=== PATIENT | female | born 1960 | race Caucasian/White ===

== ENCOUNTER 2018-08-29 23:44 | Observation (INO) ==
[2018-08-30] MEDS: Nitroglycerin 0.4 MG TAB.SUBL SL SCH ×2 (00:05→03:01)
--- NOTE | 2018-08-30 00:06 | Emergency Department Note ---
Disposition Clinical Impression: Chest pain at rest, Hypertension Disposition: Admitted As Inpatient Condition: Fair Chest Pain HPI - General Chief Complaint: ED General Medical Stated Complaint: HBP/"chest feels funny" Time Seen by Provider: 08/29/18 23:49 Source: patient, EMS Limitations: no limitations Vital Signs Reviewed: Yes Nursing Notes Reviewed: Yes - History of Present Illness HPI Narrative: 4-year-old female presenting with chest pressure and elevated blood pressure starting this morning. She states she woke up this morning and was feeling terrible and throughout the day she continued to check her blood pressure was el evated. She describes the pain in her chest as pressure, worsening throughout the day and predominant on the left side. It does not radiate. She has been taking her blood pressure medication and an attempt to help with her pain but she denies this helps at all. Otherwise denies any headache, fever, chills, nausea, vomiting, diarrhea, dysuria, hematuria, abdominal pain, lightheadedness, dizziness, numbness, tingling or weakness. Severity scale (1-10): 0 - Related Data Allergies Allergy/AdvReac Type Severity Reaction Status Date / Time No Known Allergies Allergy Verified 08/29/18 23:59 Constitutional: Denies: fever, chills, weakness, weight change Cardiovascular: Reports: chest pain. Denies: palpitations, dyspnea on exertion, orthopnea, edema, syncope Respiratory: Denies: cough, dyspnea, wheezes, hemoptysis, stridor Gastrointestinal: Denies: abdominal pain, nausea, vomiting, diarrhea, constipation, hematemesis, melena Genitourinary: Denies: urgency, dysuria, frequency Musculoskeletal: Denies: back pain, neck pain, joint swelling Integumentary: Denies: rash, abrasion, lesions Neurological: Denies: headache, weakness, numbness, paresthesias, confusion Psychiatric: Denies: anxiety, depression Endocrine: Denies: fatigue Chest Pain PMH - Past Medical History Medical history: Reports: GERD, hypertension Psychiatric history: Reports: no psych history IN HOME NANNY history: Reports: bilateral tubal ligation - Social History Smoking Status: Current every day smoker Drug use: Reports: none Physical Exam 4-year-old female in no acute distress. She is not in respiratory stress. - General Limitations: no limitations General appearance: alert - Head Head exam: atraumatic, normocephalic - Eye Eye exam: Present: normal appearance, PERRL - ENT ENT exam: normal exam, normal oropharynx, mucous membranes moist - Neck Neck exam: Present: normal inspection, full ROM, trachea midline. Absent: tenderness, meningismus - Chest Chest inspection: Present: normal inspection, symmetric chest wall rise. Absent: tenderness, rash - Respiratory Respiratory exam: Present: normal lung sounds bilaterally. Absent: respiratory distress, wheezes, stridor - Cardiovascular Cardiovascular exam: Present: regular rate, normal rhythm, normal heart sounds - Abdominal Exam Abdominal exam: Present: soft, Non-Tender, normal bowel sounds. Absent: distention, guarding, rebound, rigidity - Extremities Exam Extremities exam: Present: normal inspection. Absent: pedal edema - Back Exam Back exam: Present: normal inspection - Neurological Exam Neurological exam: Present: alert, oriented X3 - Psychiatric Psychiatric exam: Present: normal affect, normal mood - Skin Skin exam: Present: warm, dry, intact Course Vital Signs Temperature 98.2 F 08/29/18 23:49 Pulse Rate 98 08/29/18 23:49 Respiratory Rate 12 08/29/18 23:49 Blood Pressure 157/109 08/29/18 23:49 O2 Sat by Pulse Oximetry 97 08/29/18 23:49 Temperature 98.2 F 08/29/18 23:49 Pulse Rate 86 08/30/18 03:00 Respiratory Rate 18 08/30/18 03:00 Blood Pressure 138/99 08/30/18 03:00 O2 Sat by Pulse Oximetry 97 08/30/18 00:06 Oxygen Delivery Oxygen Delivery Room Air Chest Pain - [facility] Narrative Medical decision making narrative: 58-year-old female presenting with symptoms concerning for ACS. Initial EKG shows nonspecific T-wave abnormalities including T-wave inversion in 3 with T- wave flattening in aVF, V4 and T-wave inversions in V3. The patient did experience some improvement in her pain after nitroglycerin at home and resolution here. Patient has a heart score of 5 and has never had significant cardiac workup. Will require admission to hospitalist for cardiac evaluation. Discussed the case with on-call hospitalist who agrees with plan for admission. Patient agrees with and understands course of treatment plan including plan for admission. All questions answered. - Medical Records Medical records reviewed: Yes I reviewed the patient's medical records. - Lab Data Lab results reviewed: Yes I reviewed the patient's lab results. Result diagrams: 08/30/18 00:10 08/30/18 00:10 Lab Results 08/30/18 08/30/18 08/30/18 Range/Units 00:10 00:10 00:10 WBC 8.7 (4.3-11.1) K/mcL RBC 5.13 H (3.82-4.97) M/mcL Hgb 15.9 H (11.5-15.4) g/dL Hct 46.8 H (35.3-44.9) % MCV 91.2 (83.0-100.0) fL MCH 31.0 (28.0-33.3) pg MCHC 34.0 (31.6-35.5) g/dL RDW 12.7 (11.5-14.5) % Plt Count 260 (140-400) K/mcL MPV 11.2 (9.4-12.4) fL Immature Gran % 0.6 (0-4) % Seg Neutrophils % 58.9 % Lymphocytes % 32.7 % Monocytes % 5.9 % Eosinophils % 1.4 % Basophils % 0.5 % Neutrophils # 5.1 (1.6-8.9) K/mcL Lymphocytes # 2.8 (0.6-4.6) K/mcL Monocytes # 0.5 (0.0-1.3) K/mcL Eosinophils # 0.1 (0.0-0.6) K/mcL Basophils # 0.0 (0.0-0.2) K/mcL PT 9.9 (9.4-12.1) Seconds INR 0.9 APTT 34.0 (26.0-36.0) Seconds Sodium 139 (136-145) mEq/L Potassium 3.6 (3.5-5.1) mEq/L Chloride 103 (98-107) mEq/L Carbon Dioxide 30 H (23-29) mEq/L BUN 14 (8-23) mg/dL Creatinine 0.66 (0.60-1.20) mg/dL Est GFR ( Amer) > 60 (> 60) Est GFR (Non-Af Amer) > 60 (> 60) BUN/Creatinine Ratio 21 (6-26) Glucose 121 H (70-105) mg/dL Calculated Osmolality 290 (280-300) Calcium 10.1 (8.6-10.3) mg/dL Magnesium 2.1 (1.6-2.6) mg/dL Total Bilirubin 0.5 (0.3-1.0) mg/dL AST 36 (13-39) Units/L ALT 46 (7-52) Units/L Alkaline Phosphatase 68 (34-104) Units/L Troponin I < 0.03 (< 0.04) ng/mL Serum Total Protein 7.8 (6.4-8.9) g/dL Albumin 4.4 (3.5-5.7) g/dL Globulin 3.4 (2.4-3.5) g/dL Albumin/Globulin Ratio 1.3 (1.1-2.2) TSH 0.018 L (0.340-5.600) mcIU/mL - Radiology Data Radiology results reviewed: Yes I reviewed the patient's radiology results. Chest X-Ray 08/30/18 23:55 IMPRESSION: Negative portable study D/ / Katia Alonso Cha, MD / Katia Alonso Cha, MD Interpreting Provider: Katia Alonso Cha, MD - EKG Data EKG attestation: Yes I reviewed and interpreted this EKG. EKG results narrative: timed 0004: Normal sinus rhythm rate of 91. Normal axis. ST inversion in III and V1 with T wave flattening in AVF, V2, and V4. No prior for comparison. timed 0203: Normal sinus rhythm rate of 84. Normal axis. ST inversion in III and V1 with T wave flattening in AVF, V2, and V4. No change from prior today. Heart Score - Score History: Highly Suspicious EKG: Non Specific repolarisation Disturbance Age: 45-65 Risk Factors: 1-2 risk factors Troponin: Less than normal limit HEART Score Total: 5 Attestation Statement - Attestation Attestation: Resident Attestation: I examined this patient and my medical decision making was reviewed with the Resident Physician. I agree with the documented findings, disposition and treatment plan as described except to the extent set forth below. We independently had [id number] contact with the patient. Patient presents emergency department for chest pain. Chest pain located to the left side with associated significant hypertension greater than 200. Patient has medication list with her which does include nitroglycerin. She denies any previous heart catheter or stents or bypass surgery. Patient will undergo further evaluation for ACS. No acute distress, regular rate and rhythm, clear to auscultation bilaterally, no significant peripheral edema. Patient improved with nitroglycerin. Patient with inverted T waves in 3 and V3 with poor R-wave progression. Patient will be admitted for further ACS rule out.
[2018-08-30 00:37] LABS: Basophils % 0.5 %; Eosinophils # 0.1 K/mcL (0.0-0.6); Eosinophils % 1.4 %; Hematocrit 46.8 % (35.3-44.9); Hemoglobin 15.9 g/dL (11.5-15.4); Immature Granulocytes % 0.6 % (0-4); Lymphocytes # 2.8 K/mcL (0.6-4.6); Lymphocytes % 32.7 %; Mean Corpuscular Volume 91.2 fL (83.0-100.0); Mean Platelet Volume 11.2 fL (9.4-12.4); Monocytes # 0.5 K/mcL (0.0-1.3); Monocytes % 5.9 %; Neutrophils # 5.1 K/mcL (1.6-8.9); Platelet Count 260 K/mcL (140-400); Red Blood Count 5.13 M/mcL (3.82-4.97); Red Cell Distribution Width 12.7 % (11.5-14.5); Segmented Neutrophils % 58.9 %
[2018-08-30 00:41] LABS: INR 0.9; Prothrombin Time 9.9 Seconds (9.4-12.1)
[2018-08-30 00:55] LABS: Alanine Aminotransferase 46 Units/L (7-52); Albumin 4.4 g/dL (3.5-5.7); Albumin/Globulin Ratio 1.3 (1.1-2.2); Alkaline Phosphatase 68 Units/L (34-104); Aspartate Amino Transferase 36 Units/L (13-39); BUN/Creatinine Ratio 21 (6-26); Bilirubin,Total 0.5 mg/dL (0.3-1.0); Blood Urea Nitrogen 14 mg/dL (8-23); Calcium 10.1 mg/dL (8.6-10.3); Carbon Dioxide 30 mEq/L (23-29); Chloride 103 mEq/L (98-107); Globulin 3.4 g/dL (2.4-3.5); Glucose 121 mg/dL (70-105); Magnesium 2.1 mg/dL (1.6-2.6); Osmolality,Calculated 290 (280-300); Potassium 3.6 mEq/L (3.5-5.1); Sodium 139 mEq/L (136-145); Total Protein 7.8 g/dL (6.4-8.9); Troponin I < 0.03 ng/mL (< 0.04); eGFR For Non-African Americans > 60 (> 60)
[2018-08-30 01:09] LABS: Thyroid Stimulating Hormone 0.018 mcIU/mL (0.340-5.600)
[2018-08-30] MEDS ORDERED: Aspirin 81 MG TAB.CHEW PO STA (01:45)
[2018-08-30] MEDS ORDERED: Naloxone 0.4 MG/ML INJ IVP PRN (05:39)
--- NOTE | 2018-08-30 05:46 | Internal Med History&Physical ---
Date of Encounter: 08/30/18 Time of Encounter: 05:30 Internal Medicine - H&P: HPI Chief complaint: Chest pain Admitted From: Emergency Dept Plans for Post Hospital Care: Home History of present illness: Ms. Cummings is a 58 year old female Patient presented to the emergency room with chest pain that started about 24 hours ago. She woke up in the morning and felt pain in her chest for which she tried taking her home medications which includes nitroglycerin, losartan, amlodipine and aspirin. She says the pain continued, and the medications did not help so she called an ambulance to come to the hospital to be evaluated. In the emergency room patient's CBC was within normal limits BMP also within normal limits. Patient's troponin was undetectable, and TSH was low at 0.018. Chest x-ray was negative for abnormality. EKG showed normal sinus rhythm with a rate of 91 and nonspecific T-wave abnormalities. Nitroglycerin given in the emergency room did improve her pain. She was admitted for further cardiac baudilio p. Upon my evaluation, patient denies nausea, vomiting, diarrhea, constipation, abdominal pain and chest pain. She says that she recently had an echocardiogram performed at an outside facility but is unclear what the results of this test were. She says she has been waiting to receive a stress test. She has not established with a nurse reviewer at [facility]. She smokes one pack of cigarettes daily. Past Med Surg Social Fam HX - Past Medical History Medical history: GERD, hypertension Psychiatric history: no psych history - Social History Smoking Status: Current every day smoker Packs per day: 1 Smokeless Tobacco Status: No Alcohol use: rarely Drug use: none - Family History Father Name: Jose Alfredo Guzmán Living Status: Age at : 78 Cause of : stopped dialysis Hx Family Cardiac Disorders: Yes (CABG) Hx Family Endocrine Disorder: Yes (dialyisis) Internal Medicine - H&P: Meds Acetaminophen [Tylenol] 325 mg PO PRN PRN 08/30/18 [History] Amlodipine Besylate 10 mg PO DAILY 08/30/18 [History] Aspirin [Lo-Dose Aspirin EC] 81 mg PO DAILY 08/30/18 [History] Doxycycline Hyclate [Morgidox] 50 mg PO DAILY 08/30/18 [History] Levothyroxine Sodium [Synthroid] 137 mcg PO DAILY 08/30/18 [History] Loratadine [Allergy Relief] 10 mg PO DAILY 08/30/18 [History] Losartan/Hydrochlorothiazide [Losartan-Hctz 100-25 mg Tab] 1 each PO DAILY [History] Magnesium Oxide [Magnesium] 400 mg PO DAILY 08/30/18 [History] Nitroglycerin [Nitrostat] 0.4 mg SL PRN PRN 08/30/18 [History] Omeprazole [PriLOSEC] 20 mg PO DAILY 08/30/18 [History] clonazePAM [Clonazepam] 0.5 mg PO DAILY 08/30/18 [History] rOPINIRole [Requip] 1 mg PO HS 08/30/18 [History] Allergy/AdvReac Type Severity Reaction Status Date / Time No Known Allergies Allergy Verified 08/29/18 23:59 All Systems PM: A 10-system review of systems was performed and is negative for pertinent findings except as documented above in the HPI. - Constitutional Vitals: Temp Pulse Resp BP Pulse Ox 97.9 F 77 16 104/73 96 08/30/18 04:58 08/30/18 04:58 08/30/18 04:58 08/30/18 04:58 08/30/18 04:58 General appearance: Present: cooperative, A&O X 3, pleasant, no acute distress, answers questions appropriately Exam: - - Head Head exam: Present: normal inspection - Eye Eye exam: Present: EOMI, normal appearance - Neck Neck exam general surgery: Present: full ROM - Respiratory Respiratory exam: Present: CTAB. Absent: respiratory distress, rhonchi, wheezes - Cardiovascular Cardiovascular exam: Present: RRR. Absent: diastolic murmur, systolic murmur - GI/Abdominal GI/Abdominal exam: Present: normal bowel sounds, soft. Absent: tenderness - Extremities Exam Extremities exam: Present: warm, radial pulses palpable and symmetrical. Absent: calf tenderness, pedal edema, tenderness - Neurological Exam Neurological exam: Present: motor sensory deficit, no focal deficits, strengths equal and symetr throughout. Absent: facial droop, speech deficit - Skin Skin exam: Present: dry, normal color, warm Internal Med - H&P Results - Labs CBC & Chem 7: 08/30/18 00:10 08/30/18 00:10 Labs: Short CBC 08/30/18 Range/Units 00:10 WBC 8.7 (4.3-11.1) K/mcL Hgb 15.9 H (11.5-15.4) g/dL Hct 46.8 H (35.3-44.9) % Plt Count 260 (140-400) K/mcL Neutrophils # 5.1 (1.6-8.9) K/mcL BMP 08/30/18 00:10 Sodium 139 Potassium 3.6 Chloride 103 Carbon Dioxide 30 H BUN 14 Creatinine 0.66 Glucose 121 H Calcium 10.1 Cardiac Enzymes 08/30/18 Range/Units 00:10 Troponin I < 0.03 (< 0.04) ng/mL Liver Function 08/30/18 Range/Units 00:10 Total Bilirubin 0.5 (0.3-1.0) mg/dL AST 36 (13-39) Units/L ALT 46 (7-52) Units/L Alkaline Phosphatase 68 (34-104) Units/L Albumin 4.4 (3.5-5.7) g/dL - Impressions ITS Impressions Chest X-Ray 08/30/18 23:55 IMPRESSION: Negative portable study D/ / Katia Alonso Cha, MD / Katia Alonso Cha, MD Interpreting Provider: Katia Alonso Cha, MD - Assessment and plan (1) Chest pain at rest Current Visit: Yes Status: Acute Assessment and plan: Chest pain now resolved. Initial troponins negative, EKG demonstrated nonspecific changes. Patient had been receiving workup outpatient but results not available at this time. Attempt to retrieve results of patient's prior echocardiogram, may have to repeat test if not obtainable. Consider stress test, as patient had arrangements for pharmacologic stress test to be done by another provider. Continue to trend troponins Continue cardiac monitoring (2) Hypertension Current Visit: Yes Status: Acute Assessment and plan: Chronic, continue home meds Qualifiers: Hypertension type: essential hypertension Qualified Code(s): I10 - Essential (primary) hypertension (3) Hypothyroidism Current Visit: Yes Status: Acute Assessment and plan: Patient's TSH was very low in the emergency room, likely due to too high of a dose of her levothyroxine. Patient may need readjustment of her home medicine. Qualifiers: Qualified Code(s): E03.9 - Hypothyroidism, unspecified (4) DVT prophylaxis Current Visit: Yes Status: Acute Assessment and plan: Subcutaneous heparin - Time Spent With Patient Total time spent is greater than 50% in coordination of care (as documented) at patient's floor/unit and/or counseling patient: Greater than 35 minutes
[2018-08-30] MEDS: *HR* Heparin 5,000 UNIT/ML VIAL SQ SCH ×2 (06:13→17:15)
--- NOTE | 2018-08-30 08:39 | Event Note ---
Date of Encounter: 08/30/18 Time of Encounter: 09:20 Ms mcarthur was admitted with chest pain and for cardiac work up. awake, alert and currently pain free. Has had cp in recent month, admitted elsewhere for same, got dc to home with pcp fu and referral for pharm stress test which has not been yet/not yet scheduled. cp episode this admit started 24hrs ago. She has had intermittent chest pain at home, cannot discern if at rest or with exertion. left chest, occassional radiation to back. not associated with sob, diaphoresis, presyncope, n/v. No pain since nitro in ED. Denies diabetes, hyperlipidemia, notes + htn and bps have been difficult to control at home. no le edema, orthopnea, pnd, wheezing cough or congestion. no abd pain, dyspepsia, gerd hx. Father had open heart and dies in his 70s. Every day smoker. Denies recent travel, immobilization, calf pain/edema or blood clot history gen- alert, awake,appears stated age eyes- pupils equal round cv- reg rate and rhythm, normal s1,s2, no murmurs appreciated, no le edema, no jvd lungs- ctabl, no wheezing, rhonchi or crackles, normal resp effort on ra abd- soft, non tender, non distended, + bs neuro- AAOx3, Chest Pain, atypical ruled out acs with neg trops and reportedly no st depression or elevation on ED ekg- I will note, I have reveiwed the EKG interpretations as noted in ED and admitting hospitalist notes, but ekg is not in chart and not scanned into computer, so I can rely on report of initial ekg this morning -tele to monitor for arrhythmia -CXR without acute abnormality -presentation and ros not consistent with PE -rule out cardiac ischemia -risk stratify: lipid panel elevated, begin statin, check a1c, cont daily asa, check echo, stress test if available to do so today, otherwise will have to wait until saturday -pending work up will consider cards eval HLD 10 yr cvd or stroke risk 8%- begin mod intensity statin and can be uptrated outpt with pcp HTN- cont home med arb/hctz + norvasc and monitor, adjust as needed, currently normotensive Rosacea- cont home doxy daily Hx thyroidectomy, dependent on synthroid- tsh low, check t3, t4, may need to decrease home synthroid dose (no recent adjustments per pt) vte ppx sqh
[2018-08-30 08:55] LABS: Chol/HDL Ratio 4.7 (0-4.9); Cholesterol 203 mg/dL (< 200); HDL Cholesterol 43 mg/dL (40-59); LDL Cholesterol,Calculated 121 mg/dL (0-99); Triglycerides 193 mg/dL (< 150)
[2018-08-30] MEDS: Magnesium Oxide 400 MG TABLET PO SCH (12:23)
[2018-08-30] MEDS: Aspirin Enteric Coated 81 MG Tablet PO SCH (12:23)
[2018-08-30] MEDS: clonazePAM 0.5 MG TABLET PO SCH (12:23)
[2018-08-30] MEDS: Losartan/HCTZ 50-12.5 TABLET PO SCH (12:24)
[2018-08-30] MEDS: amLODIPine 5 MG TABLET PO SCH (12:24)
[2018-08-30] MEDS: DOXYCYCLINE HYCLATE 50 MG PO SCH (12:24)
[2018-08-30 12:51] LABS: Troponin I < 0.03 ng/mL (< 0.04)
[2018-08-30 13:06] LABS: Triiodothyronine (T3) Free 3.29 pg/mL (2.50-3.90)
[2018-08-30 15:09] LABS: Estimated Average Glucose 126 mg/dl
[2018-08-30] MEDS: rOPINIRole 1 MG TABLET PO SCH (20:09)
[2018-08-31] MEDS: *HR* Heparin 5,000 UNIT/ML VIAL SQ SCH ×2 (06:04→16:35)
--- NOTE | 2018-08-31 08:14 | Internal Med Progress Note ---
Hospitalist Progress Note - Encounter Date of Encounter: 08/31/18 Time of Encounter: 11:00 - Subjective Interval History: no cp last evening or overnight, none today. no manning, vision changes, n/v, abd pain. no sob or diaphroesis. - Exam Vitals: Temp Pulse Resp BP Pulse Ox 97.9 F 67 16 111/69 95 08/31/18 07:07 08/31/18 07:07 08/31/18 07:07 08/31/18 07:07 08/31/18 07:07 Exam: gen- alert, awake,appears stated age cv- reg rate and rhythm, normal s1,s2, no murmurs appreciated, no le edema lungs- ctabl, no wheezing, rhonchi or crackles, normal resp effort on ra abd- soft, non tender, non distended, + bs neuro- AAOx3, - Assessment and Plan (1) Chest pain Current Visit: Yes Status: Acute Assessment and Plan: Chest Pain, atypical ruled out acs with neg trops and reportedly no st depression or elevation on ED ekg- I will note, I have reveiwed the EKG interpretations as noted in ED and admitting hospitalist notes, but ekg is not in chart and not scanned into computer, so I can only rely on report of initial ekg on admit -tele to monitor for arrhythmia -CXR without acute abnormality -presentation and ros not consistent with PE -rule out cardiac ischemia -risk stratify: lipid panel elevated, began statin, a1c 6 prediabetes, cont daily asa -echo normal ef, mild DD - stress test could not be preformed saturday, will do saturday, npo p mn -pending work up will consider cards eval (2) HLD (hyperlipidemia) Current Visit: Yes Status: Acute Assessment and Plan: 10 yr cvd or stroke risk 8%- began mod intensity statin and can be uptrated outpt with pcp (3) Rosacea Current Visit: Yes Status: Acute Assessment and Plan: cont home doxy daily (4) Hypertension Current Visit: Yes Status: Acute Assessment and Plan: cont home med arb/hctz + norvasc and monitor, adjust as needed, currently normotensive (5) Hypothyroidism Current Visit: Yes Status: Acute Assessment and Plan: Hx thyroidectomy with low tsh, dependent on synthroid- tsh low, t3, t4 wnl, cont home synthroid dose (6) Prediabetes Current Visit: Yes Status: Acute Assessment and Plan: A1C 6.0 -diet and lifestyle education, fu with pcp DVT Prophylaxis: sq heparin - Time Spent with Patient Total time spent is greater than 50% in coordination of care (as documented) at patient's floor/unit and/or counseling patient: 25 - 35 minutes Plan of Care Discussed with: patient Internal Medicine: Result - Labs CBC & Chem 7: 08/30/18 00:10 08/30/18 00:10 Labs: BMP 08/30/18 00:10 Sodium 139 Potassium 3.6 Chloride 103 Carbon Dioxide 30 H BUN 14 Creatinine 0.66 Glucose 121 H Calcium 10.1 Cardiac Enzymes 08/30/18 08/30/18 Range/Units 00:10 12:06 Troponin I < 0.03 < 0.03 (< 0.04) ng/mL Liver Function 08/30/18 Range/Units 00:10 Total Bilirubin 0.5 (0.3-1.0) mg/dL AST 36 (13-39) Units/L ALT 46 (7-52) Units/L Alkaline Phosphatase 68 (34-104) Units/L Albumin 4.4 (3.5-5.7) g/dL - ABG Interpretation ABG results: PT/INR, D-dimer PT 9.9 Seconds (9.4-12.1) 08/30/18 00:10 - Impressions Impressions Echocardiogram 08/30/18 08:35 Impressions: LVEF 65%. Normal LV chamber size, wall thickness and systolic function. Mild left ventricular diastolic dysfunction. Normal right ventricular structure and function. No significant valvular dysfunction. No evidence of pulmonary hypertension. Left Ventricular Wall Motion: Rest Echo Findings All wall segments showed normal motion. Findings: Study Quality * Technically adequate exam. ECG Findings * Normal sinus rhythm. Left Ventricle * LVEF 65%. * Normal LV chamber size, wall thickness and systolic function. * Mild left ventricular diastolic dysfunction. Right Ventricle * Normal right ventricular structure and function. Left Atrium * Normal left atrial size. Right Atrium * Normal right atrial size. Interatrial Septum * Interatrial septum not well evaluated. Aortic Valve * Trileaflet aortic valve with normal function. * No aortic stenosis. * No aortic regurgitation. Mitral Valve * Normal mitral valve structure. * No mitral stenosis. * Trace mitral regurgitation. Tricuspid Valve * Normal tricuspid valve structure and function. * No tricuspid stenosis. * Trace tricuspid regurgitation. * Unable to estimate RVSP due to lack of TR jet. * No evidence of pulmonary hypertension. * Estimated RA pressure is 3 mmHg. Pulmonic Valve * Pulmonic valve is not well visualized. * No pulmonic stenosis. * No pulmonic regurgitation. Aorta * Normally sized aortic root. Pericardium * The pericardium appears normal. IVC * Normal IVC dimensions and inspiratory collapse. Consult Discharge Plan - Plan Referrals: Barbie Ochoa APN [Primary Care Provider] - (Unable to make follow up appointment due to office being closed. Please call Saturday to schedule a ppointment for 5-7 days from date of discharge. ) ___ (1) Chest pain Qualifiers: Chest pain type: other chest pain Qualified Code(s): R07.89 - Other chest pain; R07.8 - Other chest pain (2) HLD (hyperlipidemia) Qualifiers: Hyperlipidemia type: mixed hyperlipidemia Qualified Code(s): E78.2 - Mixed hyperlipidemia (4) Hypertension Qualifiers: Hypertension type: essential hypertension Qualified Code(s): I10 - Essential (primary) hypertension (5) Hypothyroidism Qualifiers: Qualified Code(s): E03.9 - Hypothyroidism, unspecified
[2018-08-31] MEDS: clonazePAM 0.5 MG TABLET PO SCH (08:55)
[2018-08-31] MEDS: Losartan/HCTZ 50-12.5 TABLET PO SCH (08:55)
[2018-08-31] MEDS: amLODIPine 5 MG TABLET PO SCH (08:55)
[2018-08-31] MEDS: Magnesium Oxide 400 MG TABLET PO SCH (08:55)
[2018-08-31] MEDS: Aspirin Enteric Coated 81 MG Tablet PO SCH (08:55)
[2018-08-31] MEDS: DOXYCYCLINE HYCLATE 50 MG PO SCH (08:56)
[2018-08-31] MEDS: rOPINIRole 1 MG TABLET PO SCH (20:25)
[2018-08-31] MEDS: Nitroglycerin 0.4 MG TAB.SUBL SL SCH (22:44)
[2018-09-01] MEDS: *HR* Heparin 5,000 UNIT/ML VIAL SQ SCH (05:20)
[2018-09-01 05:42] LABS: Basophils # 0.1 K/mcL (0.0-0.2); Basophils % 0.6 %; Eosinophils # 0.1 K/mcL (0.0-0.6); Eosinophils % 1.6 %; Hematocrit 43.4 % (35.3-44.9); Immature Granulocytes % 0.6 % (0-4); Lymphocytes # 3.7 K/mcL (0.6-4.6); Lymphocytes % 42.7 %; Mean Corpuscular HGB Conc 32.9 g/dL (31.6-35.5); Mean Corpuscular Hemoglobin 30.5 pg (28.0-33.3); Mean Corpuscular Volume 92.5 fL (83.0-100.0); Mean Platelet Volume 11.3 fL (9.4-12.4); Monocytes # 0.7 K/mcL (0.0-1.3); Monocytes % 8.2 %; Neutrophils # 4.1 K/mcL (1.6-8.9); Platelet Count 235 K/mcL (140-400); Red Blood Count 4.69 M/mcL (3.82-4.97); Red Cell Distribution Width 12.9 % (11.5-14.5); Segmented Neutrophils % 46.3 %
[2018-09-01 05:43] LABS: Hemoglobin 14.3 g/dL (11.5-15.4)
[2018-09-01] MEDS ORDERED: Regadenoson 0.4 MG/5 ML SYRINGE IVP ONE (06:00)
[2018-09-01 06:03] LABS: BUN/Creatinine Ratio 29 (6-26); Blood Urea Nitrogen 20 mg/dL (8-23); Calcium 9.6 mg/dL (8.6-10.3); Carbon Dioxide 27 mEq/L (23-29); Chloride 105 mEq/L (98-107); Glucose 102 mg/dL (70-105); Magnesium 2.1 mg/dL (1.6-2.6); Osmolality,Calculated 291 (280-300); Potassium 3.8 mEq/L (3.5-5.1); Sodium 139 mEq/L (136-145); eGFR For Non-African Americans > 60 (> 60)
[2018-09-01 11:04] VITALS: BP 100/71
--- NOTE | 2018-09-01 12:31 | Discharge Summary ---
<Lizeth Gr - Last Filed: 09/01/18 12:59> Orders not resulted at time of discharge: Pending orders 08/30/18 11:07 NM claudy perf SPECT multi [NM] Routine Date of Encounter: 09/01/18 - Discharge Diagnosis (1) Chest pain Status: Acute Qualifiers: Chest pain type: other chest pain Qualified Code(s): R07.89 - Other chest pain; R07.8 - Other chest pain (2) HLD (hyperlipidemia) Status: Acute Qualifiers: Hyperlipidemia type: mixed hyperlipidemia Qualified Code(s): E78.2 - Mixed hyperlipidemia (3) Rosacea Status: Acute (4) Hypertension Status: Acute Qualifiers: Hypertension type: essential hypertension Qualified Code(s): I10 - Essential (primary) hypertension (5) Hypothyroidism Status: Acute Qualifiers: Qualified Code(s): E03.9 - Hypothyroidism, unspecified (6) Prediabetes Status: Acute Hospital course: Ms. Cummings is a 58 year old female - Time Spent with Patient Total time spent providing and/or coordinating discharge services: Less than 30 minutes (25 min) - Discharge Medications Prescriptions: Simvastatin [Zocor] 20 mg PO HS 30 Days #30 tablet Home Medications: Acetaminophen [Tylenol] 325 mg PO Q6H PRN 08/30/18 [History] Amlodipine Besylate 10 mg PO DAILY 08/30/18 [History] Aspirin [Lo-Dose Aspirin EC] 81 mg PO DAILY 08/30/18 [History] Cholecalciferol (D-3) [Vitamin D] 1,000 unit PO DAILY 08/30/18 [History] Doxycycline Hyclate [Morgidox] 50 mg PO DAILY 08/30/18 [History] Levothyroxine Sodium [Synthroid] 137 mcg PO DAILY 08/30/18 [History] Loratadine [Allergy Relief] 10 mg PO DAILY 08/30/18 [History] Losartan/Hydrochlorothiazide [Losartan-Hctz 100-25 mg Tab] 1 each PO DAILY 08/30/18 [History] Magnesium Oxide [Magnesium] 400 mg PO DAILY 08/30/18 [History] Nitroglycerin [Nitrostat] 0.4 mg SL Q5M PRN 08/30/18 [History] Omeprazole [PriLOSEC] 20 mg PO DAILY 08/30/18 [History] clonazePAM [Clonazepam] 0.5 mg PO BID 08/30/18 [History] rOPINIRole [Requip] 1 mg PO BID 08/30/18 [History] Simvastatin [Zocor] 20 mg PO HS 30 Days #30 tablet 09/01/18 [Rx] Allergies/Adverse Reactions: Allergy/AdvReac Type Severity Reaction Status Date / Time No Known Allergies Allergy Verified 08/29/18 23:59 Date of admission: 08/30/18 03:26 Primary care physician: Barbie Ochoa APN - Constitutional Vitals: Temp Pulse Resp BP Pulse Ox 97.5 F L 73 16 100/71 96 09/01/18 11:03 09/01/18 11:03 09/01/18 11:03 09/01/18 11:03 09/01/18 11:03 - Patient Status Disposition: Home, Self-Care Condition: Good - Discharge Instructions Instructions: Simvastatin (By mouth), Chest Pain (DC), How to Stop Smoking (DC), Chronic Hypertension (DC), Low Sodium Diet (DC) Follow Up With: Barbie Ochoa APN [Primary Care Provider] - (Unable to make follow up appointment due to office being closed. Please call Saturday to schedule appointment for 5-7 days from date of discharge. ) - Diet and Activity Diet: low fat, low cholesterol, low salt diet, other - Attending Attestation I examined this patient and my medical decision-making was reviewed with the Resident Physician Dr Madera. I agree with the documented findings, disposition and treatment plan as described except to the extent set forth below. Ms cummings was admitted with chest pain and for cardiac work up of chest pain that has been an ongoing issue outpt. Her work up including tele, ekg, trops, echo and stress test are unremarkable. She is being dc to home in stable condition with pcp fu. awake, pleasant, sons at bedside. No cp, prssure, palpitations, presyncope, abd pain, sob, diaphroesis, n/v. encouraged pt her BP is well controlled on home meds here. sons note checks checks bp up to ten times daily and gets anxious and then sees bp elevations. discussed appropraite bp checking at home, nicotine cessation, diet and exercise modifications, and warning signs of htn and cardiac ischemia that would prompt return to ED or call to physician. Verbalized good understanding, all questions answered. gen- alert, awake,appears stated age cv- reg rate and rhythm, normal s1,s2, no murmurs appreciated, no le edema lungs- ctabl, no wheezing, rhonchi or crackles, normal resp effort on ra abd- soft, non tender, non distended, + bs neuro- AAOx3 Chest Pain, atypical ruled out acs with neg trops and ekg with non specific STT changes (which has now been loaded into [facility]) no arrhythmia CXR without acute abnormality presentation and ros not consistent with PE echo with mild Diastolic dysfunction, normal EF stress test negative for ischemia -cont home asa, statin started here given cardiac risk factors, fu with pcp for further work up of pain or outpt cardiology referral HLD 10 yr cvd or stroke risk 8%- began mod intensity statin and can be uptrated outpt with pcp HTN- cont home med arb/hctz + norvasc and monitor,well controlled bp here on home regimen, fu with pcp Rosanormaa- cont home doxy daily Hx thyroidectomy, dependent on synthroid- tsh low, t3, t4 normal, cont home synthroid further diagnoses and plan as noted by resident <Allen Madera R - Last Filed: 09/01/18 15:21> - NOTES TO OUTPATIENT PROVIDER Notes to Outpatient Provider: Follow up PCP for statin which was initiated as inpatient, anxiety, hypertension, and discuss outpatient referal to cardiology. Orders not resulted at time of discharge: Pending orders 08/30/18 11:07 NM claudy perf SPECT multi [NM] Routine Date of Encounter: 09/01/18 Time of Encounter: 10:00 - Discharge Diagnosis (1) Hypertension Priority: Primary Status: Acute Qualifiers: Hypertension type: essential hypertension Qualified Code(s): I10 - Essential (primary) hypertension (2) Hypothyroidism Priority: Secondary Status: Acute Qualifiers: Qualified Code(s): E03.9 - Hypothyroidism, unspecified (3) Chest pain Priority: Primary Status: Acute Qualifiers: Chest pain type: other chest pain Qualified Code(s): R07.89 - Other chest pain; R07.8 - Other chest pain (4) HLD (hyperlipidemia) Priority: Primary Status: Acute Qualifiers: Hyperlipidemia type: mixed hyperlipidemia Qualified Code(s): E78.2 - Mixed hyperlipidemia (5) Rosacea Priority: Secondary Status: Acute (6) Prediabetes Priority: Secondary Status: Acute Hospital course: Ms. Cummings is a 58 year old female with a past medical history significant for hypertension. Presented on 08/29/2018 for evaluation of elevated blood pressure as well as associated chest pressure. Patient reports that she has been checking her blood pressure frequently throughout the day. When she notices that it is elevated, this time approximately systolic of 175, this causes anxiety and she suddenly noted chest pressure. Cardiovascular workup was without significant findings. EKG with nonspecific T-wave abnormalities similar to prior EKGs. Troponins negative. Chest x-ray without acute abnormality. Echocardiogram with left ventricular ejection fraction of 65%, mild left ventricular diastolic dysfunction, no significant valvular dysfunction, normal wall thickness and chamber size. Nuclear stress test was performed on 08/04 without evidence of ischemia or infarction, demonstrating a normal perfusion study. Vital signs have remained stable throughout this hospitalization. Blood pressures ranged within normal limits, on home medication regimen. Cluster was found to be elevated with a total cholesterol of 203 and an LDL cholesterol of 121, patient was started on 20 mg simvastatin. Have discussed with patient risk factor modification including dietary changes, exercise, smoking cessation, and anxiety management. After much discussion with patient it is felt that anxiety is a significant triggering factor to patient's parotic elevated blood pressures. She will likely benefit from anxiety discussion with her primary care provider. Hospital course has been uncomplicated and patient is stable and ready for discharge this afternoon. Will follow up with primary care provider for ongoing management of hyperlipidemia, hypertension, anxiety, and further consideration for referral to cardiology. Naproxen was discontinued at discharge, patient states she has not taken this medication for over a month. Discharge discussed with: patient, family - Time Spent with Patient Total time spent providing and/or coordinating discharge services: Date of admission: 08/30/18 03:26 Primary care physician: Barbie Ochoa APN Discharging clinician: Allen Madera Anticipated date of discharge: 09/01/18 - Constitutional Vitals: Temp Pulse Resp BP Pulse Ox 97.5 F L 73 16 100/71 96 09/01/18 11:03 09/01/18 11:03 09/01/18 11:03 09/01/18 11:03 12/31/18 11:03 General appearance: Present: cooperative, A&O X 3, pleasant, no acute distress, answers questions appropriately Exam: General: Patient lying in bed comfortably, no apparent distress HEENT: Pupils PERRLA with EOMI, moist membranes, anicteric sclera Cardio: Regular rate and rhythm without murmurs, rubs, or gallops Lungs: Clear to auscultation bilaterally, no wheezing, rhonchi, or crackles Abdomen: Soft, nontender, nondistended, bowel sounds present normoactive Extremities: No swelling or edema, no visible rashes or lesions Neuro: Alert and oriented to person, place, time, no focal deficits Psych: Appropriate mood and affect - Patient Status Functional capacity at discharge: independent ambulation Overall status at discharge: patient is back to baseline - Diet and Activity Activity: increase activity as tolerated Diet: other (cardiac diet)
--- NOTE | 2018-09-03 09:11 | Electrocardiograph Report ---
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
--- NOTE | 2018-09-03 09:11 | Electrocardiograph Report ---
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
--- NOTE | 2018-09-03 11:27 | Electrocardiograph Report ---
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
== END 2018-09-01 13:41 | disposition home or self-care (01) ==
LOC: EMEROOARM 23:44 → 3BNU 23:44
PROVIDERS: ADMIT Internal Medicine Nephrology; ATTEND Internal Medicine Nephrology